=== PATIENT | male | born 1990 | race Caucasian/White ===

== ENCOUNTER 2023-11-09 14:41 | Emergency (ER) | payer OTHER, SELFPAY ==
[2023-11-09 14:48] VITALS: BP 121/72; PULSE 93; RESP 16; TEMP 36.5; O2SAT 95; BMI 39.2
--- NOTE | 2023-11-09 15:16 | ED_ITS ---
HPI - General Adult General Chief complaint: Laceration/Wound Stated complaint: Lac R ring finger Time Seen by Provider: 11/09/23 14:59 History of Present Illness HPI narrative: Patient is a 32-year-old male who runs a [employer], he was sharpening a knife at home when it slipped and he went to catch it knee sustained a cut medial to laterally just proximal to his PIP joint on the ring finger. On the right hand. He is able to move his hand fully, no other systemic signs of injury. He is a diabetic. Related Data Home Medications Medication Instructions Recorded Confirmed fluoxetine 10 mg capsule 10 mg PO DAILY 11/09/23 11/09/23 insulin lispro 100 unit/mL 60 unit subcut DAILY 11/09/23 11/09/23 subcutaneous solution Previous Rx's Medication Instructions Recorded cephalexin 500 mg capsule 500 mg PO QID #20 caps 11/09/23 Allergies Allergy/AdvReac Type Severity Reaction Status Date / Time No Known Drug Allergies Allergy Verified 11/09/23 14:46 Review of Systems Status of ROS: Reports: 6 or more systems reviewed and unremarkable except as noted in History and below PFSH PFS Social History Smoking Status: Never smoker Do you use any of these nicotine containing products: None How often do you have a drink containing alcohol: never AUDIT-C Alcohol total score: 0 Non-prescribed substance use: denies use service: No Exam Narrative: Exam Narrative: Objective: Patient is a cut that is not real deep just distal to his PIP joint, after sterile scrub and inspection and soaking the area showed no deep neurovascular tendon involvement he is able to fully flex and extend his extend his PIP joint and D IP joint. Says got fairly normal sensation. Const: Vital Signs, click to edit/add: Vital Signs - 24 hr 11/09/23 14:48 Temperature 97.7 F Pulse Rate [Pulse Oximeter] 93 Respiratory Rate 16 Blood Pressure [Le ft Upper Arm] 121/72 Pulse Oximetry 95 Oxygen Delivery Me thod Room Air Course Vital Signs Vital signs: Initial Vital Signs Temperature 97.7 F 11/09/23 14:48 Temperature Source Temporal Artery Scan 11/09/23 14:48 Pulse Rate 93 11/09/23 14:48 Pulse Rhythm Regular 11/09/23 14:48 Pulse Strength 3+ Normal 11/09/23 14:48 Respiratory Rate 16 11/09/23 14:48 Blood Pressure 121/72 11/09/23 14:48 Blood Pressure Mean 88 11/09/23 14:48 Blood Pressure Position Sitting 11/09/23 14:48 Pulse Oximetry 95 11/09/23 14:48 Oxygen Delivery Method Room Air 11/09/23 14:48 Vital Signs Temperature 97.7 F 11/09/23 14:48 Pulse Rate 93 11/09/23 14:48 Respiratory Rate 16 11/09/23 14:48 Blood Pressure 121/72 11/09/23 14:48 Pulse Oximetry 95 11/09/23 14:48 Oxygen Delivery Method Room Air 11/09/23 14:48 Temperature 97.7 F 11/09/23 14:48 Pulse Rate 93 11/09/23 14:48 Respiratory Rate 16 11/09/23 14:48 Blood Pressure 121/72 11/09/23 14:48 Pulse Oximetry 95 11/09/23 14:48 Oxygen Delivery Method Room Air 11/09/23 14:48 Medical Decision Making [facility] Narrative Medical decision making narrative: [age] year white male with a cut on his ring finger, does not appear to involve his joint, I do not detect any neurovascular tendon involvement. After sterile scrub and soaking 1% xylocaine with epinephrine used for anesthesia and 3-0 simple episode Ethilon sutures placed in simple fashion, with good skin approximation , good hemostasis. Patient did should get his sutures removed in 7 days, light use of the hand, keep covered for the next 2 days. Will start him on Keflex 500 q.i.d. x5 days, return if redness or infection appearing, otherwise follow up with primary care for suture removal in a week. Discharge Plan Discharge Clinical Impression: Finger laceration Patient Disposition: Home, Self-Care Condition: Improved Additional Instructions: Suture removal in 7 days, antibiotics will be prescribed, watch for redness or infection, light activity for the next several days, you may soak the dressing off after 2 days or about 36 hours. Keep the area covered while at work. Would use the hand lightly over the next week until sutures removed. you can see her primary care doctor for the suture removal. Activity Level: Light activity Discharge Diet: Regular Prescriptions: New cephalexin 500 mg capsule 500 mg PO QID Qty: 20 0RF No Action fluoxetine 10 mg capsule 10 mg PO DAILY insulin lispro 100 unit/mL solution 60 unit subcut DAILY Stand Alone Forms: [facility] Info Instructions
== END 2023-11-09 15:35 | disposition home or self-care (01) ==
LOC: ED 15:22
PROVIDERS: Emergency Provider Family Medicine; PCP Family Medicine
DX: S61.214A Laceration without foreign body of right ring finger without damage to nail, initial encounter (principal); W26.0XXA Contact with knife, initial encounter
CPT/HCPCS: 12001; 99283; 99284